=== PATIENT | female | born 1975 | race Caucasian/White ===

== ENCOUNTER 2016-11-01 10:23 | Day surgery (SDC) | payer OTHER ==
[~2016-11-01] VITALS: Ht 167.6 cm; Wt 85.2 kg
[~2016-11-01 10:23] MED LIST: BENADRILINA25 MG PO; BIRTH CONTROL PILL PO; EXCEDRIN MIGRAI1 TAB PO; FLEXERIL 10MG PO; FOLIC ACID1 M1 PO; NECON1 EACH PO; NORCO 5/325 TAB1 TAB PO; PREDNISONE20 M1 PO; PRENATAL1 TAB; RIZATRIPTAN PO; SYNTHROID PO; SYNTHROID75 MC1 PO; TOPAMAX100 M2 PO; VITAMIN D250000 UNI1 PO; ZYRTEC10 M7 PO; ZYRTEC5 M1 PO
[2016-11-01 13:43] LABS: CSF GLUCOSE 51 mg/dl (40-75)
[2016-11-01 14:51] LABS: CSF APPEARANCE CLEAR (CLEAR); CSF COLOR COLORLESS (COLORLESS); CSF LYMPHOCYTES 71 % (40-80); CSF MONOCYTES 29 % (15-45); CSF RBC CT 1 cmm (0); CSF TUBE NUMBER CSF TUBE 2; CSF WBC CT 5 cmm (0-10)
== END 2016-11-01 14:05 ==
LOC: RADSP 10:23 → SHSB 10:23 → RADSP 11:30
PROVIDERS: Psychiatry & Neurology Neurology
PROC: 009U3ZX Drainage of Spinal Canal, Percutaneous Approach, Diagnostic (ICD-10-PCS; principal; 2016-11-01)
PROC: B01BZZZ Fluoroscopy of Spinal Cord (ICD-10-PCS; 2016-11-01)
DX: R27.0 Ataxia, unspecified (principal); R94.02 Abnormal brain scan; R20.0 Anesthesia of skin; H53.2 Diplopia; Z88.0 Allergy status to penicillin; Z88.1 Allergy status to other antibiotic agents; Z88.2 Allergy status to sulfonamides; Z79.899 Other long term (current) drug therapy; Z98.890 Other specified postprocedural states
CPT/HCPCS: J7030